=== PATIENT | male | born 1950 | race African-American/Black ===

== ENCOUNTER 2018-01-26 09:22 | Inpatient (IN) ==
[2018-01-26] MEDS ORDERED: Iohexol 350 MG/ML 100 ML Vial (for Cath Lab) IVCONTRAST ONE (09:23)
[2018-01-26] MEDS ORDERED: Iohexol 350 MG/ML 50 ML Vial (for Cath Lab) IVCONTRAST ONE (09:23)
[2018-01-26 10:45] LABS: Baso # (Auto) 0.1 th/mm3 (0.0-0.2); Baso % (Auto) 2.4 % (0.0-2.0); Eos # (Auto) 0.3 th/mm3 (0.0-0.4); Eos % (Auto) 9.1 % (0.0-4.0); Hematocrit 40.7 % (39.0-51.0); Hemoglobin 14.7 gm/dL (13.0-17.0); Lymph # (Auto) 1.8 th/mm3 (1.0-4.8); Lymph % (Auto) 49.6 % (9.0-44.0); Mean Corpuscular Hemoglobin 33.7 pg (27.0-34.0); Mean Corpuscular Volume 93.1 fL (80.0-100.0); Mean Platelet Volume 6.8 fL (7.0-11.0); Mono # (Auto) 0.4 th/mm3 (0.0-0.9); Mono % (Auto) 10.2 % (0.0-8.0); Neut % (Auto) 28.7 % (16.0-70.0); Platelet Count 292 th/mm3 (150-450); Red Blood Count 4.37 mil/mm3 (4.50-5.90); Red Cell Distribution Width 14.1 % (11.6-17.2); White Blood Count 3.6 th/mm3 (4.0-11.0)
[2018-01-26 10:48] LABS: Mean Corpuscular HGB Conc 36.2 % (32.0-36.0)
[2018-01-26 10:55] LABS: INR 1.3 Ratio; Prothrombin Time 13.2 sec (9.8-11.6)
[2018-01-26 11:02] LABS: Anion Gap 5 meq/L (5-15); Blood Urea Nitrogen 8 mg/dL (7-18); Calcium 8.4 mg/dL (8.5-10.1); Chloride 103 meq/L (98-107); Glomerular Filtration Rate Greater Than 89 mL/min (>89); Glucose,Random 158 mg/dL (74-106); Potassium 4.5 meq/L (3.5-5.1); Sodium 139 meq/L (136-145)
[2018-01-26] MEDS ORDERED: Heparin/NS PF Inj 1,000 ML ONE (11:20)
[2018-01-26] MEDS ORDERED: fentaNYL Citrate Inj 100 MCG/2 ML Ampul ONE (11:24)
--- NOTE | 2018-01-26 11:24 | P.HPUP ---
The Pre-Admit History and Physical Examination regarding the above named patient was reviewed (including, but not limited to, vital signs, heart, lungs, co-morbid conditions), and upon re-examination it is noted that: the patient's condition has not significantly changed since the last examination.
--- NOTE | 2018-01-26 12:22 | P.OP ---
Preoperative Diagnosis: Bilateral lower extremity critical limb ischemia Postoperative Diagnosis: Bilateral lower extremity critical limb ischemia Date of procedure: 01/26/18 Procedure: #1 ultrasound-guided access of left common femoral artery #2 AIF angiogram #3 right lower extremity second order angiogram #4 left lower extremity second order angiogram #5 radiological supervision of the dictation #6 conscious sedation for 30 minutes Anesthesia: MAC Surgeon: Sergo Leon MD Pathology: none sent Operation and Findings: Findings #1 infrarenal abdominal aorta, bilateral common iliac arteries, and bilateral external iliac arteries were noted to be patent with no evidence of significant stenosis. #2 the right common femoral artery, profunda femoral artery was noted to be patent. 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 #3 there task the lesion with occlusion of the left superficial femoral artery, popliteal artery with reconstitution of the infragenicular popliteal artery which is severely diseased. There is two-vessel runoff to the left foot with heavily calcified and diseased anterior tibial artery and a patent posterior tibial artery. #4 the patient will need bilateral femoral to distal bypasses starting with the right lower extremity followed by the left lower extremity. Operation in detail The patient was taken to the operating room and laid supine on the OR table. After adequate sedation the patient was prepped and draped in the standard sterile fashion. Timeout was called with all members and you are in agreement. 1% lidocaine was injected in the left groin. Using ultrasound guidance we accessed the left common femoral artery and a 5 Kiswahili sheath was placed. AIF angiogram right lower extremity second order angiogram in the left lower extremity second order endograft was performed. At this point OR catheter and sheath removed hemostasis was achieved by applying direct pressure to the left groin. The patient tolerated the procedure well and was taken to recovery unit in stable condition. Conclusion This is a pleasant patient who presented with bilateral lower extremity critical limb ischemia and rest pain worse on the right than the left. He was noted to have bilateral TASC D lesions and will need bilateral lower extremity from distal bypasses. Risk benefits and alternatives were explained to the patient and he agrees to the procedure. We will schedule the patient for the right lower extremity since his more severe followed by the left lower extremity. The patient will be admitted to the hospital and will schedule the procedure for tomorrow.
--- NOTE | 2018-01-26 12:23 | CATHPROC ---
[facility] HIS Report Study Information Study Number Admission Scheduled Start Study Start [id number] Jan 26 2018 9:22AM 01/26/2018 Jan 26 2018 11:15AM [place] Service Cardiac Pacer/ICD Admit Source Facility Department Other [facility] - Printing Shop Supervisor Physician and Clinical Staff Initial MD Leon, Sergo Program Director/Morning Show Host Karishma Vang RN Other cathlab, cathlab Recorder Paulino Calvillo RCIS(BS) Scrub Cherelle, Robin,RT(R) Procedures Performed Procedure Location (Site) Vessel Name Angiogram (manual) Abd Aorta (A3) Aorta Angiogram (manual) Fem L. Com (L7) Femoral Art Angiogram (manual) Fem R. Com (R7) Femoral Art Angiogram (manual) Iliac R. Com. (R4) Illiac Art. Angiogram (manual) Peroneal (right) Popliteal Angiogram (manual) Popliteal L (L10) Popliteal Angiogram (manual) Popliteal R (R10) Popliteal Angiogram (manual) Profunda (left) Profunda Angiogram (manual) SFA (left) Femoral Art Angiogram (manual) SFA (right) Femoral Art Angiogram (manual) Tib, Ant. (left) Popliteal Angiogram (manual) Tib, Ant. (right) Popliteal Wire insertion Fem Art (left) Femoral Art Equipment Time Police Pilot Description Size Mfg Part Number Used/Scraped [id number] 11:20 ACE [employer] WIRE, SUPERCORE 190CM Used *[id number] 11:21 ANGIO-DYNAMICS OMNI FLUSH 65CM CATHETER FR 4 Used *[id number] INTRODUCER SET, 11:17 [employer] FR 5 [id number] *[id number] Used MICROPUNCTURE STIFF WIRE, HYDROSTEER 260CM [id number] 11:45 DAIG/[employer]. [employer] 260CM Used ANGLED GLIDE *[id number] 11:17 [employer] BLANKET,WARM AIR CCL * Used *[id number] 11:17 [employer] PACK, CCL CUSTOM * Used *[id number] 11:20 NAMIC MANIFOLD, 4 PORT * Used *[id number] TUBING, 72" PRESSURE [id number] 11:17 NAMIC Used INJECTION (DOUBLE NEEDLE OPERATOR LOCKSTITCH) [id number] 11:21 NAMIC TUBING, HIGH PRESSURE 48" 48" Used *[id number] 11:28 NAMIC TUBING, HIGH PRESSURE 48" 48" Used *[id number] 11:17 NYCOMED OMNIPAQUE, 300 MG, 150ML 150ML [id number] Used 11:17 NYCOMED OMNIPAQUE, 300 MG, 50ML 50ML [id number] Used [id number] 11:42 TERUMO MEDICAL SHEATH, FR5 TERUMO (10CM) FR 5 Used *[id number] Equipment Model, Serial, Lot Number and Expiration Data Description Model Number Serial Number Lot Number Expiration Date WIRE, HYDROSTEER 260CM [id number] 08-26-2019 ANGLED GLIDE History: Allergies Allergy Reaction No Known Allergies Labs Hgb (g/dl) Hct (%) WBC (l/cumm) Platelets (thousands) 11.60-17.00 35.00-51.00 4.00-11.00 150.00-450.00 14.7 40.7 3.6 292 Glucose (mg/dl) BUN (mg/dl) Creatinine (mg/dl) BUN:Creatinine (1:x) 74.00-106.00 7.00-18.00 0.50-1.30 10.00-20.00 158 8 0.8 10 Na (meq/l) K (meq/l) 136.00-145.00 3.50-5.10 139 4.5 INR (PTT:PT) 0.90-1.10 1.3 Medication Medication Total Dose (Bolus/Oral) Medication Total Dosage/Unit 1% XYLOCAINE 20 mL FENTANYL 100 mcg VERSED 2 mg Medications (Bolus/Oral) Medication Time Given Dosage/Unit Administered By Reason VERSED 01/26/2018 11:25:20 AM 1 mg Karishma Vang 1 mg VERSED given in lab by Karishma Vang, RN in Left Antecubital via Peripheral IV. Ordered by Sergo Marti. FENTANYL 01/26/2018 11:26:23 AM 50 mcg Karishma Vang 50 mcg FENTANYL given in lab by Karishma Vang, RN in Left Antecubital via Peripheral IV. Ordered by Sergo Leon. 1% XYLOCAINE 01/26/2018 11:37:25 AM 20 mL Sergo Leon 20 mL 1% XYLOCAINE given in lab by Sergo Leon in Left Groin via Subcutaneous. Ordered by Sergo Leon. VERSED 01/26/2018 11:41:28 AM 1 mg Karishma Vang 1 mg VERSED given in lab by Karishma Vang RN in Left Antecubital via Peripheral IV. Ordered by Sergo Marti. FENTANYL 01/26/2018 11:42:35 AM 50 mcg Karishma Vang 50 mcg FENTANYL given in lab by Karishma Vang RN in Left Antecubital via Peripheral IV. Ordered by Sergo Leon. Medication (Drip) Medication Time Given Dosage/Unit Concentration/Unit Diluent (ml) Solutio n IV Solutions 01/26/2018 11:15:41 AM 0 mL (IV) 500 NaCl .9 Patient arrived on IV Solutions given by robin kelly in Left Antecubital via Peripheral IV. Pump /Drip Flow = 20 ml/hr using NaCl .9. Ordered by Sergo Leon. Initial Case Assessment Cardiovascular HR Rhythm NIBP Chest Pain 58 sbrady 162/95 0 Edema Present Skin color Skin Mild Normal Warm Dry Circulatory - Right Pulses Dorsalis Pedis Femoral 1 1 Scale (0,1,2,3,4,d) Circulatory - Left Pulses Dorsalis Pedis Femoral 1 1 Scale (0,1,2,3,4,d) Neurological State Oriented to time-place- Alert Moves all extremities person Respiration - General Respiration Rate SpO2 (%) (B/min) 15 100 Chronological Log Time Study Chronological Log 11:15:31 Patient arrived via Bed. 11:15:31 Patient Name, D.O.B, / Armband Verified By R.N. 11:15:33 Consent signed by the physician and the patient and verified by the Printing Shop Supervisor staff. 11:15:33 Pre-op and post- op instructions given; patient acknowledges understanding of instructions. 11:15:35 Presedation assessment performed by Printing Shop Supervisor RN. 11:15:36 Immediate Presedation assesment performed by physician. 11:15:38 Patient has been NPO for More than 6Hrs. 11:15:38 Skin Breakdown- none per patient 11:15:39 Patient Warmer Placed on the Table. 11:15:40 Raymond Prominences Protected 11:15:40 A # 20 IV was noted in the Antecubital (left). Grade = 0 Patient arrived on IV Solutions given by robin kelly in Left Antecubital via Peripheral IV . Pump/Drip Flow = 20 11:15:41 ml/hr using NaCl .9. Ordered by Sergo Leon. 11:15:41 History and physical on the chart or being dictated. 11:17:21 MD arrived. Vitals capture started with the following parameters, Patient=Adult, Interval=5 min, Initial Pr lujyda=005 mmHg, 11:20:17 Deflation Rate=5 mmHg, Cuff placed on Left Arm 11:20:18 Reference ECG taken Assessment: Initial Case, HR=58 BPM, Rhythm=sbrady, DONQ=670/95 mmhg, Chest Pain=0, Edema=Mild, Color=Normal, Skin = Warm, Dry Right Pulses: Dillan Ped=1, Femoral=1 11:20:19 Left Pulses: Dillan Ped=1, Femoral=1 Neurological: State=Alert, Ox3, URENA Respiration: Resp=15 B/min, AgH8=111 % 11:20:53 HR=56 bpm, QYFC=287/95 mmhg, YmB5=325.0 %, Resp=10 B/min, Pain=0, Mahendra=10, Graf=2 11:25:20 1 mg VERSED given in lab by Karishma Vang, KELLEY in Left Antecubital via Peripheral IV. Orde red by Sergo Leon. 11:25:54 HR=62 bpm, JUBQ=222/93 mmhg, WyH5=771.0 %, Resp=12 B/min, Pain=0, Mahendra=10, Graf=2 50 mcg FENTANYL given in lab by Karishma Vang, KELLEY in Left Antecubital via Peripheral IV. Orde red by Carolyn, 11:26:23 Sergo. 11:29:11 Bilateral groins prepped with 2% chlorhexidine, and draped after a 3 minute waiting time. 11:30:32 Contrast Scanned 11:30:33 Immediate Presedation assesment performed by physician. 11:30:55 HR=62 bpm, FKVV=456/92 mmhg, TdZ6=101.0 %, Resp=14 B/min, Pain=0, Mahendra=10, Graf=2 11:33:52 Pressure channel 2 zeroed. 11:35:54 HR=59 bpm, WYTN=770/88 mmhg, KsI8=691.0 %, Resp=10 B/min, Pain=0, Mahendra=10, Graf=2 Time Out. Correct patient, correct procedure, correct physician, labs, allergies, and equipment verified with labor relations supervisor 11:37:09 team present. Fire risk assesment completed (see hard stop sheet for coding). Time Out Conc urred by MD and individual staff in procedure. 11:37:25 Case Start 11:37:25 20 mL 1% XYLOCAINE given in lab by Sergo Leon in Left Groin via Subcutaneous. Ordered by Sergo Leon. 11:40:34 Access site was Left Femoral Artery. A INTRODUCER SET, MICROPUNCTURE STIFF FR 5 was advanced into the Fem Art (left) using the Omar servin 11:40:37 technique. 11:40:49 HR=65 bpm, ZFMO=722/91 mmhg, SpO2=99.0 %, Resp=10 B/min, Pain=0, Mahendra=10, Graf=2 A SHEATH, FR5 TERUMO (10CM) FR 5 was exchanged in the Fem Art (left). This was necessary in ord er to 11:41:19 accomodate a larger catheter. 11:41:28 1 mg VERSED given in lab by Karishma Vang, KELLEY in Left Antecubital via Peripheral IV. Orde red by Sergo Leon. 50 mcg FENTANYL given in lab by Karishma Vang, KELLEY in Left Antecubital via Peripheral IV. Orde red by Carolyn, 11:42:35 Sergo. A OMNI FLUSH 65CM CATHETER FR 4 was advanced over a wire. OMNIPAQUE, 300 MG, 150ML 150ML was us ed for 11:42:47 injections. 11:44:22 Abd Aorta (A3) angiogram, manually injected. 11:45:07 A WIRE, HYDROSTEER 260CM ANGLED GLIDE 260CM was inserted via Fem Art (left). 11:46:25 HR=58 bpm, GQJC=222/90 mmhg, DmF5=475.0 %, Resp=9 B/min, Pain=0, Mahendra=10, Graf=2 11:48:14 Iliac R. Com. (R4) angiogram, manually injected. 11:48:21 Fem R. Com (R7) angiogram, manually injected. 11:48:25 SFA (right) angiogram, manually injected. 11:48:29 Popliteal R (R10) angiogram, manually injected. 11:50:53 HR=69 bpm, VIMW=339/88 mmhg, SpO2=99.0 %, Resp=10 B/min, Pain=0, Mahendra=10, Graf=2 11:51:38 Tib, Ant. (right) angiogram, manually injected. 11:51:42 Peroneal (right) angiogram, manually injected. 11:55:09 A WIRE, SUPERCORE 190CM was inserted via Fem Art (left). 11:55:16 Catheter was removed w/o difficulty 11:55:52 HR=65 bpm, IZHF=781/90 mmhg, LjZ3=304.0 %, Resp=10 B/min, Pain=0, Mahendra=10, Graf=2 11:56:57 Fem L. Com (L7) angiogram, manually injected. 11:57:56 Profunda (left) angiogram, manually injected. 11:59:15 SFA (left) angiogram, manually injected. 11:59:28 Popliteal L (L10) angiogram, manually injected. 12:00:55 HR=63 bpm, KZGH=714/87 mmhg, EeF5=578.0 %, Resp=14 B/min, Pain=0, Mahendra=10, Graf=2 12:01:40 Tib, Ant. (left) angiogram, manually injected. 12:05:54 HR=64 bpm, JUIU=186/85 mmhg, OtF2=846.0 %, Resp=14 B/min, Pain=0, Mahendra=10, Graf=2 12:07:09 Case End (Physician broke scrub) 12:08:30 Sheath removed; pressure applied to access site. 12:10:53 HR=62 bpm, VYLS=082/92 mmhg, SpO2=98.0 %, Resp=9 B/min, Pain=0, Mahendra=10, Graf=2 12:15:54 HR=67 bpm, ALHE=937/99 mmhg, SpO2=85.0 %, Resp=12 B/min, Pain=0, Mahendra=10, Grfa=2 12:20:59 HR=64 bpm, MHFP=396/108 mmhg, SpO2=70.0 %, Resp=11 B/min, Pain=0, Mahendra=10, Graf=2 12:21:27 Sterile dressing applied to site 12:21:28 No case complications noted. 12:21:29 Cine recording checked. 12:21:30 Bedside Report will be given. End Study - Contrast Media Used In Study Contrast Total Opened (mL) Total Used (mL) Total Wasted (mL) Omnipaque 135 135 0 End Study - Maximum Contrast Load Max Contrast Load (mL) 349.4 End Study - Radiation Exposure Fluoro Time (minutes) 1.6 End Study - Sheaths Sheaths Pulled By Sheath Hold Time (min) Robin Villarreal 14 End Study - Patient Disposition Complications Transferred To Interventional Outcome No Printing Shop Supervisor Holding No attempt made
[2018-01-26] MEDS: Sod Chloride 0.9% Inj 1,000 ML IV.SIG SCH (13:31)
[2018-01-26] MEDS: Morphine Sulfate Inj 2 MG/ML Vial IV.PUSH PRN (13:45)
[2018-01-26] MEDS: KCL 20 mEq/D5W/NaCl 0.45% Inj 1,000 ML IV.CONT SCH (14:59)
[2018-01-26] MEDS: Heparin - SQ 10,000 UNITS/ML Vial SQ SCH ×2 (15:19→21:56)
--- NOTE | 2018-01-26 19:47 | US ---
EXAM DATE: 01/26/2018 7:41 PM EDT AGE/SEX: 67 years / Male INDICATIONS: Conduit for bypass. CLINICAL DATA: This is the patient's initial encounter. Patient reports that signs and symptoms have been present for 4 - 6 months and indicates a pain score of 9/10. MEDICAL/SURGICAL HISTORY: . Chronic pain. Claudication. Diabetes. Peripheral arterial disease. Diabetes. . Femoral-tibial bypass graft occlusion, right. COMPARISON: [facility] [place] LEG BILATERAL VENOUS DOPPLER, 08/10/2016. . TECHNIQUE: Venous ultrasound of both lower extremities was performed from the inguinal ligament to t he proximal calf. Real-time, color Doppler and spectral tracing, compression and augmentation techni ques were used. FINDINGS: Right Leg: Normal compression of the deep venous system from the inguinal region to the proximal curly f. No echogenic clot is seen. Normal response of the venous system to augmentation and respiration. Left Leg: Normal compression of the deep venous system from the inguinal region to the proximal calf . No echogenic clot is seen. Normal response of the venous system to augmentation and respiration. Other: None. CONCLUSION: 1. The study is negative for bilateral lower extremity deep venous thrombosis. Electronically signed by: Facundo Buchanan MD 01/26/2018 7:46 PM EDT
--- NOTE | 2018-01-26 20:06 | US ---
EXAM DATE: 01/26/2018 8:03 PM EDT AGE/SEX: 67 years / Male INDICATIONS: Conduit for bypass. CLINICAL DATA: This is the patient's initial encounter. Patient reports that signs and symptoms have been present for 4 - 6 months and indicates a pain score of 8/10. MEDICAL/SURGICAL HISTORY: . Chronic pain. Claudication. Diabetes. Peripheral arterial disease. Diabetes. . Femoral-tibial bypass graft occlusion, right. COMPARISON: [place], US VENOUS DOPPLER LEG BI, 01/26/2018. . MEASUREMENTS: RIGHT THIGH: Proximal:__5 mm Mid:__ 2 mm Distal:__Non-visualized LEFT THIGH: Proximal:__2 mm Mid:__Non-visualized Distal:__Non-visualized RIGHT CALF: Proximal:__2 mm Mid:__2 mm Distal:__2 mm LEFT CALF: Proximal:__Non-visualized Mid:__Non-visualized Distal:__Non-visualized FINDINGS: The venous system of the lower extremities are patent by color Doppler imaging. Measurements of the leg veins (in mm) are listed above. CONCLUSION: 1. Limited exam. Vessel diameters otherwise within normal limits. Electronically signed by: Facundo Buchanan MD 01/26/2018 8:05 PM EDT
[2018-01-27] MEDS ORDERED: Chlorhexidine Gluconate 2% 1 Pack (2 Cloths) TOPICAL ONE (00:47)
[2018-01-27] MEDS ORDERED: Metoprolol Tartrate 25 MG Tablet PO ONE (00:47)
[2018-01-27] MEDS ORDERED: Sodium Chlor 0.9% Inj 500 ML IV.SIG SCH (01:00)
[2018-01-27] MEDS: KCL 20 mEq/D5W/NaCl 0.45% Inj 1,000 ML IV.CONT SCH ×3 (01:25→22:23)
[2018-01-27] MEDS: Heparin - SQ 10,000 UNITS/ML Vial SQ SCH ×2 (06:02→14:25)
[2018-01-27 06:12] LABS: Hematocrit 43.3 % (39.0-51.0); Hemoglobin 14.5 gm/dL (13.0-17.0); Mean Corpuscular HGB Conc 33.4 % (32.0-36.0); Mean Corpuscular Hemoglobin 31.6 pg (27.0-34.0); Mean Corpuscular Volume 94.5 fL (80.0-100.0); Mean Platelet Volume 7.1 fL (7.0-11.0); Platelet Count 278 th/mm3 (150-450); Red Blood Count 4.58 mil/mm3 (4.50-5.90); Red Cell Distribution Width 13.7 % (11.6-17.2); White Blood Count 3.9 th/mm3 (4.0-11.0)
[2018-01-27] MEDS ORDERED: Heparin/NS PF Inj 500 ML ONE (06:32)
[2018-01-27] MEDS ORDERED: Thrombin Topical 20,000 UNIT Spray Kit TOPICAL ONE (06:32)
[2018-01-27] MEDS ORDERED: Protamine Sulfate Inj 50 MG/5 ML Vial ONE (06:32)
[2018-01-27] MEDS ORDERED: Heparin 10,000 UNITS/10 ML Vial (for IV use) ONE (06:32)
[2018-01-27] MEDS ORDERED: ceFAZolin 2 GM Premix Inj 2 GM/50 ML PIGGYBACK IV.SIG ONE (06:32)
[2018-01-27 06:33] LABS: Anion Gap 7 meq/L (5-15); Blood Urea Nitrogen 12 mg/dL (7-18); Calcium 8.3 mg/dL (8.5-10.1); Chloride 105 meq/L (98-107); Glomerular Filtration Rate Greater Than 89 mL/min (>89); Glucose,Random 163 mg/dL (74-106); Potassium 4.3 meq/L (3.5-5.1); Sodium 139 meq/L (136-145)
[2018-01-27] MEDS ORDERED: Gelatin Size 100 Topical Foam ONE (06:39)
[2018-01-27] MEDS ORDERED: Lidocaine PF 1% Inj 5 ML Syringe OTHER ONE (07:45)
[2018-01-27] MEDS ORDERED: Labetalol HCl Inj 100 MG/20 ML Vial IV.CONT ONE (07:45)
[2018-01-27] MEDS ORDERED: Phenylephrine/NS 1000 MCG/10ML Syringe IV.PUSH ONE (07:45)
[2018-01-27] MEDS ORDERED: Neostigmine Inj 5 MG/5 ML Syringe IV.PUSH ONE (07:45)
[2018-01-27] MEDS ORDERED: Glycopyrrolate Inj 1 MG/5 ML Syringe IV.PUSH ONE (07:45)
[2018-01-27] MEDS ORDERED: Normosol-R pH 7.4 Inj 2,000 ML IV.CONT ONE (07:45)
[2018-01-27] MEDS ORDERED: Ketamine Inj 50 MG/5 ML Syringe IV.PUSH ONE (09:03)
[2018-01-27] MEDS ORDERED: Bupivacaine 0.5% Inj 50 ML MDV Vial ONE (10:53)
--- NOTE | 2018-01-27 11:27 | P.OP ---
Preoperative Diagnosis: Right lower extremity critical limb ischemia Postoperative Diagnosis: Right lower extremity critical limb ischemia Date of procedure: 01/27/18 Procedure: Redo right femoral to popliteal artery bypass using 6 mm ringed PTFE graft that is anatomically tunneled. Surgeon: Sergo Leon MD Estimated blood loss (mL): 100 Operation and Findings: Findings Successful redo right femoral to posterior tibial artery bypass using the ring PTFE graft that is anatomically tunneled. There was triphasic posterior tibial signal at the end of the procedure. Description of the procedure The patient was taken to the operating room and laid supine on the OR table. After general trach anesthesia the patient was prepped and draped in the standard sterile fashion. Timeout was called with all members and they are in agreement. A right groin incision was made dissection was taken down through the subcutaneous tissues electrocautery. The common femoral artery common iliac artery were all dissected and encircled with Silastic loop. The old bypass graft was also identified and dissected. Now attention was turned to the right posterior tibial artery dissection. An incision was made in the right medial calf and dissection was taken down through the subcutaneous tissues electrocautery. The soleus was mobilized medially. The posterior tibial artery was identified dissected and encircled with 2 Silastic loops. The patient was heparinized. The graft was then brought into the field proximal distal control was obtained and right femoral vessels and the old graft was removed. An arteriotomy was then extended into the common femoral artery. The graft was brought into the field catheter. In length and the proximal anastomosis fashioned using a 5-0 Prolene suture in a running fashion. The graft was then tunneled anatomically by created a counterincision in the medial thigh. Proximal distal control was obtained in the posterior tibial artery and arteriotomy was created and the graft was cut to appropriate length and the distal anastomosis fashion using 6-0 Prolene suture in a running fashion. Hemostasis achieved and all wounds was closed in multiple layers using Vicryl suture followed by Monocryl suture. The calf incision was closed using nylon suture. Prevena dressing was placed on the right groin wound and sterile dressing was placed on the rest of the wound. The patient tolerated the procedure well and was taken to recovery in stable condition.
[2018-01-27] MEDS ORDERED: *morphine SULFATE 10 MG/ML PERIprocedure ONLY ONE ×2 (11:50→12:00)
[2018-01-27] MEDS ORDERED: Morphine Inj 4 MG/ML Vial ONE (11:52)
[2018-01-27] MEDS ORDERED: fentaNYL Citrate Inj 100 MCG/2 ML Ampul ONE ×2 (11:52)
[2018-01-27] MEDS ORDERED: Post-op Orders (for Pharmacy) OTHER STA (11:58)
[2018-01-27] MEDS ORDERED: *Meperidine Inj 25 MG/ML Vial PERIprocedural Use ONLY ONE (12:00)
[2018-01-27] MEDS: ceFAZolin 2 GM Premix Inj 2 GM/50 ML PIGGYBACK IV.SIG SCH (15:55)
[2018-01-27] MEDS: amLODIPine 10 MG Tablet PO SCH (17:08)
[2018-01-27] MEDS: Sod Chloride 0.9% Inj 1,000 ML IV.SIG SCH (17:10)
--- NOTE | 2018-01-27 18:52 | ECG ---
Date Performed: 01/27/2018 Time Performed: 07:43:03 PTAGE: 67 years EKG: SINUS BRADYCARDIA BORDERLINE ECG NO PREVIOUS TRACING DOCTOR: Forest See Interpretating Date/Time 01/27/2018 18:51:09
[2018-01-27 21:25] LABS: Activated Partial Thrombo Time 32.2 sec (23.4-31.7); INR 1.1 Ratio; Prothrombin Time 11.3 sec (9.8-11.6)
[2018-01-28] MEDS: ceFAZolin 2 GM Premix Inj 2 GM/50 ML PIGGYBACK IV.SIG SCH ×2 (01:54→09:10)
[2018-01-28 05:05] LABS: Eos # (Auto) 0.2 th/mm3 (0.0-0.4); Eos % (Auto) 4.3 % (0.0-4.0); Hematocrit 37.5 % (39.0-51.0); Hemoglobin 12.6 gm/dL (13.0-17.0); Lymph # (Auto) 1.7 th/mm3 (1.0-4.8); Lymph % (Auto) 35.9 % (9.0-44.0); Mean Corpuscular HGB Conc 33.6 % (32.0-36.0); Mean Corpuscular Hemoglobin 31.6 pg (27.0-34.0); Mean Platelet Volume 6.9 fL (7.0-11.0); Mono # (Auto) 0.4 th/mm3 (0.0-0.9); Mono % (Auto) 9.1 % (0.0-8.0); Neut # (Auto) 2.3 th/mm3 (1.8-7.7); Neut % (Auto) 49.7 % (16.0-70.0); Platelet Count 248 th/mm3 (150-450); Red Blood Count 3.99 mil/mm3 (4.50-5.90); Red Cell Distribution Width 13.6 % (11.6-17.2); White Blood Count 4.6 th/mm3 (4.0-11.0)
[2018-01-28 05:43] LABS: Anion Gap 6 meq/L (5-15); Blood Urea Nitrogen 5 mg/dL (7-18); Calcium 7.5 mg/dL (8.5-10.1); Carbon Dioxide 28.1 meq/L (21.0-32.0); Chloride 105 meq/L (98-107); Glomerular Filtration Rate Greater Than 89 mL/min (>89); Glucose,Random 186 mg/dL (74-106); Potassium 4.1 meq/L (3.5-5.1); Sodium 139 meq/L (136-145)
[2018-01-28] MEDS ORDERED: Dextrose 50% in Water 50 ML Vial IV.PUSH PRN ×2 (07:09→19:42)
[2018-01-28] MEDS: KCL 20 mEq/D5W/NaCl 0.45% Inj 1,000 ML IV.CONT SCH (09:09)
[2018-01-28] MEDS: amLODIPine 10 MG Tablet PO SCH (09:11)
[2018-01-28] MEDS: Insulin NovoLIN Regular Correctional Sugar Inj SQ SCH ×3 (09:28→16:51)
[2018-01-28] MEDS: Morphine Sulfate Inj 2 MG/ML Vial IV.PUSH PRN ×3 (09:39→20:29)
[2018-01-28] MEDS: Heparin Drip 25,000 UNIT/250 ML BAG IV.CONT PRN (09:44)
--- NOTE | 2018-01-28 10:01 | P.PNVS ---
Subjective Post Op Day #: 1 Subjective/Hospital Course: Patient is doing well, his pain is well controlled. Objective Vital Signs / I&O: Vital Signs 01/27/18 11:34 01/27/18 11:45 01/27/18 12:00 Temperature 97.2 F L Pulse Rate 80 77 66 Respiratory Rate 10 L 16 17 Blood Pressure 182/101 H 165/102 H 161/92 H Pulse Oximetry 100 100 100 01/27/18 12:15 01/27/18 12:30 01/27/18 13:00 Temperature 97.4 F L Pulse Rate 65 62 73 Respiratory Rate 22 20 15 Blood Pressure 153/94 H 146/91 H 167/96 H Pulse Oximetry 93 L 93 L 99 01/27/18 13:57 01/27/18 14:00 01/27/18 16:01 Temperature 97.7 F Pulse Rate 63 71 Respiratory Rate 22 20 19 Blood Pressure 152/86 H 167/92 H Pulse Oximetry 99 95 01/27/18 16:02 01/27/18 19:00 01/27/18 20:00 Temperature 97.6 F Pulse Rate 60 70 Respiratory Rate 16 Blood Pressure 156/84 H Pulse Oximetry 95 99 01/27/18 20:36 01/27/18 21:00 01/27/18 22:00 Temperature Pulse Rate 62 60 Respiratory Rate 20 Blood Pressure Pulse Oximetry 01/27/18 22:34 01/27/18 23:00 01/28/18 00:00 Temperature 98.5 F Pulse Rate 60 66 Respiratory Rate 16 16 Blood Pressure 126/74 Pulse Oximetry 98 01/28/18 01:00 01/28/18 02:00 01/28/18 03:25 Temperature Pulse Rate 60 58 L 60 Respiratory Rate Blood Pressure Pulse Oximetry 01/28/18 04:00 01/28/18 04:25 01/28/18 05:25 Temperature 98.5 F Pulse Rate 62 76 67 Respiratory Rate 16 Blood Pressure 136/82 Pulse Oximetry 98 01/28/18 06:00 Temperature Pulse Rate 58 L Respiratory Rate Blood Pressure Pulse Oximetry Intake & Output 01/27/18 01/28/18 01/28/18 18:59 06:59 18:59 Intake Total 4510 / 4510 1290 / 1290 1000 / 1000 Output Total 980 / 980 1800 / 1800 Balance 3530 / 3530 -510 / -510 1000 / 1000 Weight 60.4 kg Intake: IV 1100 / 1100 1050 / 1050 1000 / 1000 Heparin/NS PF Inj 500 ML @ 0 0 / 0 mls/hr .ROUTE .STK-MED ONE Rx#: [id number] D5W/1/2NS + KCL 20 mEq Inj 1, 1000 / 1000 1000 / 1000 1000 / 1000 000 ML @ 100 mls/hr IV.CONT . Q10H [facility] Rx#:[id number] NS Inj 1,000 ML @ 30 mls/hr IV. 0 / 0 SIG .Q24H [facility] Rx#:[id number] Ancef 2 GM Premix Inj 2 gm In 100 / 100 50 / 50 50 ml @ 100 mls/hr IV.SIG Q8H [facility] Rx#:[id number] Oral 460 / 460 240 / 240 Anesthesia Amount 2950 / 2950 Output: Estimated Blood Loss 250 / 250 Urine Amount (Catheter) 730 / 730 1800 / 1800 Indwelling Temp Sensing 630 / 630 1800 / 1800 Catheter Indwelling Urethral Catheter 100 / 100 Other: Mode Setting Right Groin Continuous Date of Last Bowel Movement 01/27/18 Exam: Multiphasic right posterior tibial signal. Wounds are clean dry intact. Laboratory Results - last 24 hr 01/27/18 01/27/18 01/27/18 12:28 20:37 23:32 WBC RBC Hgb Hct MCV MCH MCHC RDW Plt Count MPV Neut % (Auto) Lymph % (Auto) [place] % (Auto) Eos % (Auto) Baso % (Auto) Neut # (Auto) Lymph # (Auto) [place] # (Auto) Eos # (Auto) Baso # (Auto) WBC Differential Differential Comment PT 11.3 INR 1.1 APTT 32.2 H Sodium Potassium Chloride Carbon Dioxide Anion Gap BUN Creatinine Estimated GFR POC Glucose 153 H 189 H Random Glucose Calcium 01/28/18 01/28/18 01/28/18 04:16 04:16 09:25 WBC 4.6 RBC 3.99 L Hgb 12.6 L Hct 37.5 L MCV 94.0 MCH 31.6 MCHC 33.6 RDW 13.6 Plt Count 248 MPV 6.9 L Neut % (Auto) 49.7 Lymph % (Auto) 35.9 [place] % (Auto) 9.1 H Eos % (Auto) 4.3 H Baso % (Auto) 1.0 Neut # (Auto) 2.3 Lymph # (Auto) 1.7 [place] # (Auto) 0.4 Eos # (Auto) 0.2 Baso # (Auto) 0.0 WBC Differential . Differential Comment Auto diff final PT INR APTT Sodium 139 Potassium 4.1 Chloride 105 Carbon Dioxide 28.1 Anion Gap 6 BUN 5 L Creatinine 0.76 Estimated GFR Greater than 89 POC Glucose 261 H Random Glucose 186 H Calcium 7.5 L D Assessment and Plan - Plan Status post redo femoral posterior tibial bypass We will start heparin drip Ambulate as tolerated Regular diet DC Brown DC IV fluids
[2018-01-28] MEDS ORDERED: ceFAZolin 2 GM Premix Inj 2 GM/50 ML PIGGYBACK IV.SIG SCH (10:36)
[2018-01-28] MEDS: Sod Chloride 0.9% Inj 1,000 ML IV.SIG SCH (10:51)
[2018-01-28] MEDS: Insulin NovoLOG Aspart Correctional Sugar Inj SQ SCH (22:48)
[2018-01-29] MEDS: Morphine Sulfate Inj 2 MG/ML Vial IV.PUSH PRN ×4 (04:34→20:18)
[2018-01-29 06:47] LABS: Baso % (Auto) 0.5 % (0.0-2.0); Eos % (Auto) 0.4 % (0.0-4.0); Hematocrit 42.8 % (39.0-51.0); Hemoglobin 14.4 gm/dL (13.0-17.0); Lymph % (Auto) 11.8 % (9.0-44.0); Mean Corpuscular HGB Conc 33.5 % (32.0-36.0); Mean Corpuscular Hemoglobin 31.8 pg (27.0-34.0); Mean Corpuscular Volume 94.8 fL (80.0-100.0); Mean Platelet Volume 7.2 fL (7.0-11.0); Mono # (Auto) 0.5 th/mm3 (0.0-0.9); Mono % (Auto) 6.1 % (0.0-8.0); Neut % (Auto) 81.2 % (16.0-70.0); Platelet Count 269 th/mm3 (150-450); Red Blood Count 4.52 mil/mm3 (4.50-5.90); Red Cell Distribution Width 13.4 % (11.6-17.2); White Blood Count 8.7 th/mm3 (4.0-11.0)
[2018-01-29 07:18] LABS: Anion Gap 8 meq/L (5-15); Blood Urea Nitrogen 8 mg/dL (7-18); Calcium 8.2 mg/dL (8.5-10.1); Carbon Dioxide 26.8 meq/L (21.0-32.0); Chloride 100 meq/L (98-107); Glomerular Filtration Rate Greater Than 89 mL/min (>89); Glucose,Random 181 mg/dL (74-106); Potassium 4.2 meq/L (3.5-5.1); Sodium 135 meq/L (136-145)
[2018-01-29] MEDS: Insulin NovoLOG Aspart Correctional Sugar Inj SQ SCH ×4 (08:46→21:45)
[2018-01-29] MEDS: amLODIPine 10 MG Tablet PO SCH (08:46)
--- NOTE | 2018-01-29 10:22 | P.PNVS ---
Subjective Subjective/Hospital Course: Doing well tolerating diet, having bowel movements, pain controlled Objective Vital Signs / I&O: Vital Signs 01/28/18 12:00 01/28/18 13:00 01/28/18 14:00 Temperature 98.8 F Pulse Rate 62 69 70 Respiratory Rate 18 Blood Pressure 157/87 H Pulse Oximetry 99 01/28/18 16:00 01/28/18 17:00 01/28/18 18:00 Temperature 98.9 F Pulse Rate 74 74 78 Respiratory Rate 18 Blood Pressure 142/84 H Pulse Oximetry 99 01/28/18 19:00 01/28/18 20:00 01/28/18 21:00 Temperature 98.7 F Pulse Rate 75 70 70 Respiratory Rate 18 Blood Pressure 153/94 H Pulse Oximetry 99 01/28/18 22:00 01/28/18 22:49 01/28/18 23:00 Temperature Pulse Rate 74 75 Respiratory Rate 16 Blood Pressure Pulse Oximetry 01/28/18 23:55 01/29/18 00:00 01/29/18 01:00 EDT Temperature 98.6 F Pulse Rate 84 78 Respiratory Rate 18 16 Blood Pressure 169/88 H Pulse Oximetry 97 01/29/18 01:00 EST 01/29/18 02:00 01/29/18 03:00 Temperature 99.8 F H Pulse Rate 83 84 87 Respiratory Rate 16 Blood Pressure 159/86 H Pulse Oximetry 98 01/29/18 04:00 01/29/18 05:00 01/29/18 06:00 Temperature Pulse Rate 91 H 93 H 93 H Respiratory Rate Blood Pressure Pulse Oximetry 01/29/18 06:23 01/29/18 07:00 01/29/18 08:47 Temperature 98.5 F Pulse Rate 89 Respiratory Rate 20 16 16 Blood Pressure 148/88 H Pulse Oximetry 99 Intake & Output 01/28/18 01/29/18 01/29/18 19:59 06:59 18:59 Intake Total Output Total Balance Weight Intake: IV D5W/1/2NS + KCL 20 mEq Inj 1, 000 ML @ 100 mls/hr IV.CONT . Q10H SAMUEL Rx#:[id number] Ancef 2 GM Premix Inj 2 gm In 50 ml @ 100 mls/hr IV.SIG Q8H SAMUEL Rx#:[id number] Oral Output: Urine Urine Amount (Catheter) Indwelling Temp Sensing Catheter Other: Date of Last Bowel Movement 01/27/18 Physical Exam: Right lower extremity wounds are clean dry intact. Multiphasic posterior tibial , dorsalis pedis signal. Laboratory Results - last 24 hr 01/28/18 01/28/18 01/28/18 12:54 16:45 16:47 WBC RBC Hgb Hct MCV MCH MCHC RDW Plt Count MPV Neut % (Auto) Lymph % (Auto) [place] % (Auto) Eos % (Auto) Baso % (Auto) Neut # (Auto) Lymph # (Auto) [place] # (Auto) Eos # (Auto) Baso # (Auto) WBC Differential Differential Comment APTT 73.1 H D Sodium Potassium Chloride Carbon Dioxide Anion Gap BUN Creatinine Estimated GFR POC Glucose 83 156 H Random Glucose Calcium 01/28/18 01/28/18 01/29/18 21:01 21:35 05:52 WBC 8.7 RBC 4.52 Hgb 14.4 Hct 42.8 MCV 94.8 MCH 31.8 MCHC 33.5 RDW 13.4 Plt Count 269 MPV 7.2 Neut % (Auto) 81.2 H Lymph % (Auto) 11.8 [place] % (Auto) 6.1 Eos % (Auto) 0.4 Baso % (Auto) 0.5 Neut # (Auto) 7.0 Lymph # (Auto) 1.0 [place] # (Auto) 0.5 Eos # (Auto) 0.0 Baso # (Auto) 0.0 WBC Differential . Differential Comment Auto diff final APTT 85.7 H Sodium Potassium Chloride Carbon Dioxide Anion Gap BUN Creatinine Estimated GFR POC Glucose 156 H Random Glucose Calcium 01/29/18 01/29/18 01/29/18 05:52 05:52 08:30 WBC RBC Hgb Hct MCV MCH MCHC RDW Plt Count MPV Neut % (Auto) Lymph % (Auto) [place] % (Auto) Eos % (Auto) Baso % (Auto) Neut # (Auto) Lymph # (Auto) [place] # (Auto) Eos # (Auto) Baso # (Auto) WBC Differential Differential Comment APTT 45.5 H D Sodium 135 L Potassium 4.2 Chloride 100 Carbon Dioxide 26.8 Anion Gap 8 BUN 8 Creatinine 0.79 Estimated GFR Greater than 89 POC Glucose 236 H Random Glucose 181 H Calcium 8.2 L Assessment and Plan - Plan Status post redo femoral posterior tibial bypass Out of bed today with PT. Will start Coumadin.
[2018-01-29] MEDS: Heparin Drip 25,000 UNIT/250 ML BAG IV.CONT PRN (10:36)
[2018-01-29] MEDS: Sod Chloride 0.9% Inj 1,000 ML IV.SIG SCH (11:30)
[2018-01-30 04:23] LABS: Baso # (Auto) 0.1 th/mm3 (0.0-0.2); Baso % (Auto) 0.9 % (0.0-2.0); Eos # (Auto) 0.2 th/mm3 (0.0-0.4); Eos % (Auto) 1.7 % (0.0-4.0); Hematocrit 37.1 % (39.0-51.0); Hemoglobin 12.8 gm/dL (13.0-17.0); Lymph # (Auto) 2.4 th/mm3 (1.0-4.8); Lymph % (Auto) 25.3 % (9.0-44.0); Mean Corpuscular HGB Conc 34.4 % (32.0-36.0); Mean Corpuscular Hemoglobin 31.7 pg (27.0-34.0); Mean Platelet Volume 7.7 fL (7.0-11.0); Mono % (Auto) 10.9 % (0.0-8.0); Neut # (Auto) 5.8 th/mm3 (1.8-7.7); Neut % (Auto) 61.2 % (16.0-70.0); Platelet Count 245 th/mm3 (150-450); Red Blood Count 4.03 mil/mm3 (4.50-5.90); Red Cell Distribution Width 13.3 % (11.6-17.2); White Blood Count 9.4 th/mm3 (4.0-11.0)
[2018-01-30 04:45] LABS: Anion Gap 8 meq/L (5-15); Blood Urea Nitrogen 16 mg/dL (7-18); Calcium 7.9 mg/dL (8.5-10.1); Carbon Dioxide 27.4 meq/L (21.0-32.0); Chloride 100 meq/L (98-107); Glomerular Filtration Rate Greater Than 89 mL/min (>89); Glucose,Random 141 mg/dL (74-106); Potassium 4.1 meq/L (3.5-5.1); Sodium 135 meq/L (136-145)
[2018-01-30] MEDS: Morphine Sulfate Inj 2 MG/ML Vial IV.PUSH PRN ×2 (08:24→12:52)
[2018-01-30] MEDS: Insulin NovoLOG Aspart Correctional Sugar Inj SQ SCH ×4 (09:30→22:16)
[2018-01-30] MEDS: amLODIPine 10 MG Tablet PO SCH (09:31)
--- NOTE | 2018-01-30 11:09 | P.PNVS ---
Subjective Post Op Day #: 3 Procedure: Redo right femoral to popliteal artery bypass Subjective/Hospital Course: 67/M S/P Redo right femoral to popliteal artery bypass Pt sitting in chair doing well Pain controlled Tolerating diet Objective Vital Signs / I&O: Vital Signs 01/29/18 12:00 01/29/18 13:00 01/29/18 14:00 Temperature Pulse Rate 92 H 90 84 Respiratory Rate Blood Pressure Pulse Oximetry 01/29/18 15:00 01/29/18 16:00 01/29/18 17:00 Temperature 98.7 F Pulse Rate 83 82 92 H Respiratory Rate 16 Blood Pressure 152/91 H Pulse Oximetry 98 01/29/18 18:00 01/29/18 19:00 01/29/18 20:00 Temperature 98.7 F Pulse Rate 84 81 82 Respiratory Rate 16 Blood Pressure 157/87 H Pulse Oximetry 99 01/29/18 21:00 01/29/18 22:00 01/29/18 23:00 Temperature 98.8 F Pulse Rate 86 86 85 Respiratory Rate 16 Blood Pressure 137/73 Pulse Oximetry 98 01/30/18 00:00 01/30/18 01:00 01/30/18 02:00 Temperature Pulse Rate 82 86 80 Respiratory Rate Blood Pressure Pulse Oximetry 01/30/18 03:00 01/30/18 03:02 01/30/18 04:00 Temperature 99.3 F Pulse Rate 85 86 Respiratory Rate 16 16 Blood Pressure 133/78 Pulse Oximetry 99 01/30/18 05:00 01/30/18 06:00 01/30/18 07:00 Temperature 99.0 F Pulse Rate 84 90 86 Respiratory Rate 18 Blood Pressure 157/96 H Pulse Oximetry 98 Intake & Output 01/29/18 01/30/18 01/30/18 18:59 06:59 18:59 Intake Total 1190 / 1190 240 / 240 Output Total 450 / 450 Balance 740 / 740 240 / 240 Weight 46 kg Intake: IV 250 / 250 Heparin/D5W 25,000 U/250 mL 25, 250 / 250 000 unit In 250 ml @ Per Protocol IV.CONT TITRATE PRN Rx #:[id number] Oral 940 / 940 240 / 240 Output: Urine 450 / 450 Other: Date of Last Bowel Movement 01/27/18 01/27/18 01/29/18 Exam: R LE warm w/ slight improvement to motor function Multiphasic R DP/PT heard via Doppler Prevena wound vac to R groin intact R groin soft w/o swelling or hematoma dressings (2) to R LE I/C/D Laboratory Results - last 24 hr 01/29/18 01/29/18 01/29/18 11:56 12:45 17:00 WBC RBC Hgb Hct MCV MCH MCHC RDW Plt Count MPV Neut % (Auto) Lymph % (Auto) [place] % (Auto) Eos % (Auto) Baso % (Auto) Neut # (Auto) Lymph # (Auto) [place] # (Auto) Eos # (Auto) Baso # (Auto) WBC Differential Differential Comment APTT 41.5 H Sodium Potassium Chloride Carbon Dioxide Anion Gap BUN Creatinine Estimated GFR POC Glucose 195 H 201 H Random Glucose Calcium 01/29/18 01/30/18 01/30/18 21:08 03:30 03:30 WBC 9.4 RBC 4.03 L Hgb 12.8 L Hct 37.1 L MCV 92.0 MCH 31.7 MCHC 34.4 RDW 13.3 Plt Count 245 MPV 7.7 Neut % (Auto) 61.2 Lymph % (Auto) 25.3 [place] % (Auto) 10.9 H Eos % (Auto) 1.7 Baso % (Auto) 0.9 Neut # (Auto) 5.8 Lymph # (Auto) 2.4 [place] # (Auto) 1.0 H Eos # (Auto) 0.2 Baso # (Auto) 0.1 WBC Differential . Differential Comment Auto diff final APTT 42.5 H Sodium Potassium Chloride Carbon Dioxide Anion Gap BUN Creatinine Estimated GFR POC Glucose 158 H Random Glucose Calcium 01/30/18 01/30/18 03:30 08:32 WBC RBC Hgb Hct MCV MCH MCHC RDW Plt Count MPV Neut % (Auto) Lymph % (Auto) [place] % (Auto) Eos % (Auto) Baso % (Auto) Neut # (Auto) Lymph # (Auto) [place] # (Auto) Eos # (Auto) Baso # (Auto) WBC Differential Differential Comment APTT Sodium 135 L Potassium 4.1 Chloride 100 Carbon Dioxide 27.4 Anion Gap 8 BUN 16 Creatinine 0.82 Estimated GFR Greater than 89 POC Glucose 239 H Random Glucose 141 H Calcium 7.9 L Assessment and Plan - Plan POD 3 Status post redo femoral posterior tibial bypass Pt doing well pain controlled Plan Continue PT/OOB/ambulation (walker) Continue pain control Malka Ridley NP [facility] [phone] Discharge Plannin-3 days
[2018-01-30] MEDS: Sod Chloride 0.9% Inj 1,000 ML IV.SIG SCH (12:53)
[2018-01-30] MEDS: Heparin Drip 25,000 UNIT/250 ML BAG IV.CONT PRN (19:26)
[2018-01-31 05:29] LABS: Baso % (Auto) 0.8 % (0.0-2.0); Eos # (Auto) 0.2 th/mm3 (0.0-0.4); Eos % (Auto) 3.3 % (0.0-4.0); Hematocrit 33.6 % (39.0-51.0); Hemoglobin 11.7 gm/dL (13.0-17.0); Lymph % (Auto) 31.8 % (9.0-44.0); Mean Corpuscular HGB Conc 34.8 % (32.0-36.0); Mean Corpuscular Hemoglobin 31.9 pg (27.0-34.0); Mean Corpuscular Volume 91.6 fL (80.0-100.0); Mean Platelet Volume 7.4 fL (7.0-11.0); Mono # (Auto) 0.8 th/mm3 (0.0-0.9); Mono % (Auto) 12.7 % (0.0-8.0); Neut # (Auto) 3.3 th/mm3 (1.8-7.7); Neut % (Auto) 51.4 % (16.0-70.0); Platelet Count 257 th/mm3 (150-450); Red Blood Count 3.67 mil/mm3 (4.50-5.90); Red Cell Distribution Width 13.5 % (11.6-17.2); White Blood Count 6.4 th/mm3 (4.0-11.0)
[2018-01-31 05:48] LABS: Anion Gap 10 meq/L (5-15); Carbon Dioxide 26.3 meq/L (21.0-32.0); Chloride 98 meq/L (98-107); Glomerular Filtration Rate Greater Than 89 mL/min (>89); Glucose,Random 151 mg/dL (74-106); Potassium 4.1 meq/L (3.5-5.1); Sodium 134 meq/L (136-145)
[2018-01-31 06:22] LABS: Blood Urea Nitrogen 15 mg/dL (7-18)
[2018-01-31] MEDS: Morphine Sulfate Inj 2 MG/ML Vial IV.PUSH PRN ×4 (08:17→21:52)
[2018-01-31] MEDS: amLODIPine 10 MG Tablet PO SCH (08:17)
[2018-01-31] MEDS: Insulin NovoLOG Aspart Correctional Sugar Inj SQ SCH ×4 (08:18→21:49)
[2018-01-31] MEDS: Sod Chloride 0.9% Inj 1,000 ML IV.SIG SCH (11:37)
[2018-01-31 14:20] LABS: INR 1.3 Ratio; Prothrombin Time 13.4 sec (9.8-11.6)
--- NOTE | 2018-01-31 17:07 | P.PNVS ---
Subjective Subjective/Hospital Course: 67/M S/P Redo right femoral to popliteal artery bypass Doing well tolerating diet, ambulating with physical therapy. Objective Vital Signs / I&O: Vital Signs 01/30/18 18:00 01/30/18 19:00 01/30/18 20:00 Temperature 98.4 F Pulse Rate 88 96 H 94 H Respiratory Rate 18 Blood Pressure 140/91 H Pulse Oximetry 01/30/18 21:00 01/30/18 22:00 01/30/18 23:00 Temperature Pulse Rate 80 77 79 Respiratory Rate Blood Pressure Pulse Oximetry 01/31/18 00:00 01/31/18 01:00 01/31/18 02:00 Temperature 98.2 F Pulse Rate 76 83 72 Respiratory Rate 19 Blood Pressure 146/86 H Pulse Oximetry 01/31/18 03:00 01/31/18 04:00 01/31/18 05:00 Temperature 98.6 F Pulse Rate 69 79 68 Respiratory Rate 18 Blood Pressure 125/71 Pulse Oximetry 01/31/18 06:00 01/31/18 07:00 01/31/18 08:00 Temperature 98.3 F Pulse Rate 66 69 68 Respiratory Rate 16 Blood Pressure 146/76 H Pulse Oximetry 100 01/31/18 09:00 01/31/18 10:00 01/31/18 11:00 Temperature Pulse Rate 65 69 69 Respiratory Rate Blood Pressure Pulse Oximetry 01/31/18 12:00 01/31/18 13:00 01/31/18 14:00 Temperature 98.5 F Pulse Rate 72 64 68 Respiratory Rate 16 Blood Pressure 135/77 Pulse Oximetry 99 01/31/18 15:00 01/31/18 16:00 01/31/18 17:00 Temperature 98.2 F Pulse Rate 73 76 75 Respiratory Rate 16 Blood Pressure 156/90 H Pulse Oximetry 100 Intake & Output 01/30/18 01/31/18 01/31/18 18:59 06:59 18:59 Intake Total 920 / 920 730 / 730 Output Total 460 / 460 500 / 500 Balance 460 / 460 230 / 230 Weight 58.9 kg Intake: IV 250 / 250 Heparin/D5W 25,000 U/250 mL 25, 250 / 250 000 unit In 250 ml @ Per Protocol IV.CONT TITRATE PRN Rx #:[id number] Oral 920 / 920 480 / 480 Output: Urine 460 / 460 500 / 500 Other: Date of Last Bowel Movement 01/29/18 Physical Exam: All incisions are clean dry intact. Right lower extremity with multiphasic posterior tibial signal Laboratory Results - last 24 hr 01/30/18 01/31/18 01/31/18 22:09 04:25 04:25 WBC 6.4 RBC 3.67 L Hgb 11.7 L Hct 33.6 L MCV 91.6 MCH 31.9 MCHC 34.8 RDW 13.5 Plt Count 257 MPV 7.4 Neut % (Auto) 51.4 Lymph % (Auto) 31.8 [place] % (Auto) 12.7 H Eos % (Auto) 3.3 Baso % (Auto) 0.8 Neut # (Auto) 3.3 Lymph # (Auto) 2.0 [place] # (Auto) 0.8 Eos # (Auto) 0.2 Baso # (Auto) 0.0 WBC Differential . Differential Comment Auto diff final PT INR APTT 41.8 H Sodium Potassium Chloride Carbon Dioxide Anion Gap BUN Creatinine Estimated GFR POC Glucose 153 H Random Glucose Calcium 01/31/18 01/31/18 01/31/18 04:25 07:39 11:56 WBC RBC Hgb Hct MCV MCH MCHC RDW Plt Count MPV Neut % (Auto) Lymph % (Auto) [place] % (Auto) Eos % (Auto) Baso % (Auto) Neut # (Auto) Lymph # (Auto) [place] # (Auto) Eos # (Auto) Baso # (Auto) WBC Differential Differential Comment PT INR APTT Sodium 134 L Potassium 4.1 Chloride 98 Carbon Dioxide 26.3 Anion Gap 10 BUN 15 Creatinine 0.75 Estimated GFR Greater than 89 POC Glucose 189 H 203 H Random Glucose 151 H Calcium 8.0 L 01/31/18 01/31/18 13:35 14:50 WBC RBC Hgb Hct MCV MCH MCHC RDW Plt Count MPV Neut % (Auto) Lymph % (Auto) [place] % (Auto) Eos % (Auto) Baso % (Auto) Neut # (Auto) Lymph # (Auto) [place] # (Auto) Eos # (Auto) Baso # (Auto) WBC Differential Differential Comment PT 13.4 H INR 1.3 APTT Sodium Potassium Chloride Carbon Dioxide Anion Gap BUN Creatinine Estimated GFR POC Glucose 250 H Random Glucose Calcium Assessment and Plan - Plan Postop day 4 status post right lower extremity femoral tibial bypass. Coumadin started. INR is 1.3 Plan discharge to rehab in 1-2 days. Discharge Plannin-3 days
[2018-02-01] MEDS: Heparin Drip 25,000 UNIT/250 ML BAG IV.CONT PRN (01:46)
[2018-02-01] MEDS: Morphine Sulfate Inj 2 MG/ML Vial IV.PUSH PRN ×5 (04:35→21:07)
[2018-02-01 06:18] LABS: Baso # (Auto) 0.1 th/mm3 (0.0-0.2); Eos # (Auto) 0.3 th/mm3 (0.0-0.4); Eos % (Auto) 5.6 % (0.0-4.0); Hematocrit 33.3 % (39.0-51.0); Hemoglobin 11.5 gm/dL (13.0-17.0); Lymph # (Auto) 1.9 th/mm3 (1.0-4.8); Lymph % (Auto) 37.2 % (9.0-44.0); Mean Corpuscular HGB Conc 34.5 % (32.0-36.0); Mean Corpuscular Hemoglobin 31.8 pg (27.0-34.0); Mean Corpuscular Volume 92.2 fL (80.0-100.0); Mono # (Auto) 0.6 th/mm3 (0.0-0.9); Mono % (Auto) 11.1 % (0.0-8.0); Neut # (Auto) 2.3 th/mm3 (1.8-7.7); Neut % (Auto) 45.1 % (16.0-70.0); Platelet Count 307 th/mm3 (150-450); Red Blood Count 3.61 mil/mm3 (4.50-5.90); Red Cell Distribution Width 12.9 % (11.6-17.2); White Blood Count 5.2 th/mm3 (4.0-11.0)
[2018-02-01 06:29] LABS: Activated Partial Thrombo Time 42.7 sec (23.4-31.7); INR 1.4 Ratio; Prothrombin Time 14.6 sec (9.8-11.6)
[2018-02-01 06:37] LABS: Anion Gap 8 meq/L (5-15); Blood Urea Nitrogen 11 mg/dL (7-18); Calcium 8.2 mg/dL (8.5-10.1); Carbon Dioxide 29.1 meq/L (21.0-32.0); Chloride 100 meq/L (98-107); Glomerular Filtration Rate Greater Than 89 mL/min (>89); Glucose,Random 116 mg/dL (74-106); Sodium 137 meq/L (136-145)
[2018-02-01] MEDS: Insulin NovoLOG Aspart Correctional Sugar Inj SQ SCH ×4 (07:47→21:08)
[2018-02-01] MEDS: amLODIPine 10 MG Tablet PO SCH (08:28)
--- NOTE | 2018-02-01 09:40 | P.PNVS ---
Subjective Subjective/Hospital Course: 67/M S/P Redo right femoral to PT artery bypass Doing well tolerating diet, ambulating with physical therapy. Objective Vital Signs / I&O: Vital Signs 01/31/18 10:00 01/31/18 11:00 01/31/18 12:00 Temperature 98.5 F Pulse Rate 69 69 72 Respiratory Rate 16 Blood Pressure 135/77 Pulse Oximetry 99 01/31/18 13:00 01/31/18 14:00 01/31/18 15:00 Temperature Pulse Rate 64 68 73 Respiratory Rate Blood Pressure Pulse Oximetry 01/31/18 16:00 01/31/18 17:00 01/31/18 18:00 Temperature 98.2 F Pulse Rate 76 75 78 Respiratory Rate 16 Blood Pressure 156/90 H Pulse Oximetry 100 01/31/18 20:00 01/31/18 21:00 01/31/18 22:00 Temperature 99 F Pulse Rate 77 70 76 Respiratory Rate 18 Blood Pressure 171/92 H Pulse Oximetry 100 01/31/18 23:00 02/01/18 00:00 02/01/18 01:00 Temperature 98.7 F Pulse Rate 80 81 70 Respiratory Rate 18 Blood Pressure 158/81 H Pulse Oximetry 100 02/01/18 02:00 02/01/18 03:00 02/01/18 04:00 Temperature 99.1 F Pulse Rate 66 68 73 Respiratory Rate 18 Blood Pressure 146/83 H Pulse Oximetry 99 02/01/18 05:00 02/01/18 06:00 02/01/18 07:00 Temperature Pulse Rate 86 72 82 Respiratory Rate Blood Pressure Pulse Oximetry 02/01/18 08:00 02/01/18 09:00 Temperature 98.8 F Pulse Rate 78 74 Respiratory Rate 16 Blood Pressure 144/86 H Pulse Oximetry 100 Intake & Output 01/31/18 02/01/18 02/01/18 18:59 06:59 18:59 Intake Total 920 / 920 730 / 730 Output Total 900 / 900 1000 / 1000 Balance -270 / -270 Intake: IV 250 / 250 Heparin/D5W 25,000 U/250 mL 25, 250 / 250 000 unit In 250 ml @ Per Protocol IV.CONT TITRATE PRN Rx #:[id number] Oral 920 / 920 480 / 480 Output: Urine 900 / 900 1000 / 1000 Other: Date of Last Bowel Movement 01/31/18 Physical Exam: Palpable R PT pulse wounds CDI Laboratory Results - last 24 hr 01/31/18 01/31/18 01/31/18 11:56 13:35 14:50 WBC RBC Hgb Hct MCV MCH MCHC RDW Plt Count MPV Neut % (Auto) Lymph % (Auto) [place] % (Auto) Eos % (Auto) Baso % (Auto) Neut # (Auto) Lymph # (Auto) [place] # (Auto) Eos # (Auto) Baso # (Auto) WBC Differential Differential Comment PT 13.4 H INR 1.3 APTT Sodium Potassium Chloride Carbon Dioxide Anion Gap BUN Creatinine Estimated GFR POC Glucose 203 H 250 H Random Glucose Calcium 01/31/18 02/01/18 02/01/18 21:35 04:21 04:21 WBC 5.2 RBC 3.61 L Hgb 11.5 L Hct 33.3 L MCV 92.2 MCH 31.8 MCHC 34.5 RDW 12.9 Plt Count 307 MPV 7.0 Neut % (Auto) 45.1 Lymph % (Auto) 37.2 [place] % (Auto) 11.1 H Eos % (Auto) 5.6 H Baso % (Auto) 1.0 Neut # (Auto) 2.3 Lymph # (Auto) 1.9 [place] # (Auto) 0.6 Eos # (Auto) 0.3 Baso # (Auto) 0.1 WBC Differential . Differential Comment Auto diff final PT INR APTT Sodium 137 Potassium 4.0 Chloride 100 Carbon Dioxide 29.1 Anion Gap 8 BUN 11 Creatinine 0.78 Estimated GFR Greater than 89 POC Glucose 177 H Random Glucose 116 H Calcium 8.2 L 02/01/18 04:21 WBC RBC Hgb Hct MCV MCH MCHC RDW Plt Count MPV Neut % (Auto) Lymph % (Auto) [place] % (Auto) Eos % (Auto) Baso % (Auto) Neut # (Auto) Lymph # (Auto) [place] # (Auto) Eos # (Auto) Baso # (Auto) WBC Differential Differential Comment PT 14.6 H INR 1.4 APTT 42.7 H Sodium Potassium Chloride Carbon Dioxide Anion Gap BUN Creatinine Estimated GFR POC Glucose Random Glucose Calcium Assessment and Plan - Plan Postop day 4 status post right lower extremity femoral tibial bypass. Coumadin started. INR is 1.4 Plan discharge to rehab in 1-2 days. Discharge Plannin-3 days
[2018-02-01] MEDS: Sod Chloride 0.9% Inj 1,000 ML IV.SIG SCH (10:04)
[2018-02-02] MEDS: Morphine Sulfate Inj 2 MG/ML Vial IV.PUSH PRN ×6 (00:30→22:58)
[2018-02-02 04:15] LABS: INR 1.7 Ratio; Prothrombin Time 17.4 sec (9.8-11.6)
[2018-02-02] MEDS: Insulin NovoLOG Aspart Correctional Sugar Inj SQ SCH ×4 (09:11→21:26)
[2018-02-02] MEDS: amLODIPine 10 MG Tablet PO SCH (09:12)
--- NOTE | 2018-02-02 10:51 | P.PNVS ---
Subjective Post Op Day #: 6 Procedure: Redo right femoral to popliteal artery bypass Subjective/Hospital Course: 67/M S/P Redo right femoral to PT artery bypass Pt w/ improved R foot motor function Pt continues to be doing well Pt tolerating diet Pt ambulating w/ PT Pain controlled Objective Vital Signs / I&O: Vital Signs 02/01/18 11:00 02/01/18 12:00 02/01/18 13:00 Temperature 98.6 F Pulse Rate 71 72 69 Respiratory Rate 16 Blood Pressure 147/81 H Pulse Oximetry 100 02/01/18 14:00 02/01/18 15:00 02/01/18 16:00 Temperature 98.5 F Pulse Rate 73 73 76 Respiratory Rate 16 Blood Pressure 161/91 H Pulse Oximetry 100 02/01/18 17:00 02/01/18 18:00 02/01/18 19:00 Temperature Pulse Rate 79 80 73 Respiratory Rate Blood Pressure Pulse Oximetry 02/01/18 20:00 02/01/18 21:00 02/01/18 21:10 Temperature 98.8 F Pulse Rate 76 76 Respiratory Rate 16 16 Blood Pressure 161/81 H Pulse Oximetry 100 02/01/18 21:12 02/01/18 22:00 02/01/18 23:00 Temperature Pulse Rate 74 70 Respiratory Rate 16 Blood Pressure Pulse Oximetry 02/02/18 00:00 02/02/18 00:30 02/02/18 01:00 Temperature 98.7 F Pulse Rate 76 80 Respiratory Rate 16 16 Blood Pressure 155/90 H Pulse Oximetry 100 02/02/18 02:00 02/02/18 03:00 02/02/18 04:00 Temperature 98.6 F Pulse Rate 70 82 80 Respiratory Rate 16 Blood Pressure 167/93 H Pulse Oximetry 100 02/02/18 05:00 02/02/18 06:00 02/02/18 07:00 Temperature Pulse Rate 82 86 73 Respiratory Rate Blood Pressure Pulse Oximetry 02/02/18 07:43 02/02/18 08:00 02/02/18 09:00 Temperature 98.6 F Pulse Rate 80 82 Respiratory Rate 16 20 Blood Pressure 158/94 H Pulse Oximetry 100 02/02/18 10:00 Temperature Pulse Rate 82 Respiratory Rate Blood Pressure Pulse Oximetry Intake & Output 11/07/18 11/08/18 11/08/18 18:59 06:59 18:59 Intake Total 1200 / 1200 680 / 680 Output Total 900 / 900 650 / 650 Balance 300 / 300 30 / 30 Weight 58 kg Intake: Oral 1200 / 1200 680 / 680 Output: Urine 900 / 900 650 / 650 Exam: 67/M speech clear, NAD , GCS 15 Incision to R leg intact with sutures/No R/D/S Prevena wound vac to R groin intact R groin soft w/o swelling or hematoma R LE warm w/ improved motor function R DP 2+ palpable Laboratory Results - last 24 hr 02/01/18 02/01/18 02/01/18 11:17 15:18 20:59 PT INR POC Glucose 167 H 170 H 163 H 02/02/18 02/02/18 03:25 08:33 PT 17.4 H INR 1.7 POC Glucose 199 H Assessment and Plan - Plan 67/M s/p re do R distal bypass (femoral tibial bypass) POD 6 Pt doing well Pain controlled INR - 1.7 Plan Continue PT/OOB/Ambulation Continue pain control Continue neurovascular checks INR ordered for tomorrow am- If therapeutic (2-3) will D/c tomorrow am D/c planning (Rehab) Malka Ridley NP [facility]/[employer] [phone] Discharge Planning: tomorrow am
[2018-02-02] MEDS: Heparin Drip 25,000 UNIT/250 ML BAG IV.CONT PRN (10:56)
[2018-02-03] MEDS: Morphine Sulfate Inj 2 MG/ML Vial IV.PUSH PRN ×3 (04:00→09:29)
[2018-02-03 05:12] LABS: Activated Partial Thrombo Time 44.6 sec (23.4-31.7); INR 1.9 Ratio; Prothrombin Time 19.4 sec (9.8-11.6)
[2018-02-03 06:36] VITALS: O2SAT 100
--- NOTE | 2018-02-03 07:51 | P.PNVS ---
Subjective Post Op Day #: 7 Procedure: Redo right femoral to popliteal artery bypass Subjective/Hospital Course: 67/M S/P Redo right femoral to PT artery bypass Pt w/o complaints Pt w/ improved R foot motor function Pt continues to be doing well Pt tolerating diet Pt ambulating w/ PT Pain controlled Removed Prevena wound vac R groin Objective Vital Signs / I&O: Vital Signs 02/02/18 08:00 02/02/18 09:00 02/02/18 10:00 Temperature 98.6 F Pulse Rate 80 82 82 Respiratory Rate 20 Blood Pressure 158/94 H Pulse Oximetry 100 02/02/18 11:00 02/02/18 12:00 02/02/18 13:00 Temperature 98.5 F Pulse Rate 72 70 80 Respiratory Rate 20 Blood Pressure 158/92 H Pulse Oximetry 100 02/02/18 14:00 02/02/18 15:00 02/02/18 16:00 Temperature 98.5 F Pulse Rate 72 90 82 Respiratory Rate 20 Blood Pressure 150/87 H Pulse Oximetry 100 02/02/18 17:00 02/02/18 18:00 02/02/18 19:00 Temperature Pulse Rate 78 74 74 Respiratory Rate Blood Pressure Pulse Oximetry 02/02/18 20:00 02/02/18 20:47 02/02/18 21:00 Temperature 98.5 F Pulse Rate 86 78 Respiratory Rate 20 16 Blood Pressure 178/98 H Pulse Oximetry 100 02/02/18 21:20 02/02/18 22:00 02/02/18 23:00 Temperature Pulse Rate 72 76 Respiratory Rate 8 L Blood Pressure Pulse Oximetry 02/02/18 23:24 02/03/18 00:00 02/03/18 01:00 Temperature 98.6 F Pulse Rate 90 92 H Respiratory Rate 16 18 Blood Pressure 172/97 H Pulse Oximetry 90 L 02/03/18 02:00 02/03/18 03:00 02/03/18 04:00 Temperature 98.5 F Pulse Rate 74 69 82 Respiratory Rate 18 Blood Pressure 154/92 H Pulse Oximetry 100 02/03/18 05:00 02/03/18 06:00 Temperature Pulse Rate 82 70 Respiratory Rate Blood Pressure Pulse Oximetry Intake & Output 02/02/18 02/03/18 02/03/18 18:59 06:59 18:59 Intake Total 1050 / 1050 840 / 840 Output Total 600 / 600 940 / 940 Balance 450 / 450 -100 / -100 Weight 58 kg Intake: IV 250 / 250 Heparin/D5W 25,000 U/250 mL 25, 250 / 250 000 unit In 250 ml @ Per Protocol IV.CONT TITRATE PRN Rx #:[id number] Oral 800 / 800 840 / 840 Output: Urine 600 / 600 940 / 940 Other: Date of Last Bowel Movement 01/30/18 # Bowel Movements 0 Exam: 67/M speech clear, NAD , GCS 15 Incision to R leg intact with sutures/No R/D/S R groin incision Dry intact with steri strips _ No R/D/S/O Incision to R upper thigh region intact w/ steri strips R groin soft w/o swelling or hematoma R LE warm w/ improved motor function R DP 2+ palpable Laboratory Results - last 24 hr 02/02/18 02/02/18 02/02/18 08:33 09:46 12:03 PT INR APTT 42.0 H POC Glucose 199 H 178 H 02/02/18 02/02/18 02/03/18 16:27 20:54 03:56 PT 19.4 H INR 1.9 APTT 44.6 H POC Glucose 192 H 191 H Assessment and Plan - Plan 67/M s/p re do R distal bypass (femoral tibial bypass) POD 7 Pt doing well Pain controlled INR - 1.9 Plan Pt clear for d/c w/ out pt PT- Rx written Removed Prevena wound vac Leave incisions open to air Arranged out pt f/u in 2W with an DARIN and GS Malka Ridley NP [employer] [phone] Discharge Planning: today
--- NOTE | 2018-02-03 08:02 | P.DS ---
Discharge Summary - Admission Date 01/26/18 12:22 - Admission Diagnosis (1) PVD (peripheral vascular disease) - Discharge Date 02/03/18 - Discharge Diagnosis (1) PVD (peripheral vascular disease) Status: Acute - Summary Brief History from admission: 67/M with a PMH of Bilateral lower extremity critical limb ischemia Presented with R LE (decreased motor function and rest pain several months ago) Procedure: Redo right femoral to popliteal artery bypass Significant Findings: Palpable R DP Improved R LE motor function and ambulation Incisions intact to R LE (3) R groin w/o hematoma or swelling Abnormal Lab Results 02/02/18 02/02/18 02/02/18 08:33 09:46 12:03 PT INR APTT 42.0 H POC Glucose 199 H 178 H 02/02/18 02/02/18 02/03/18 16:27 20:54 03:56 PT 19.4 H INR 1.9 APTT 44.6 H POC Glucose 192 H 191 H Hospital Course: 67/M with a PMH of Bilateral lower extremity critical limb ischemia Presented with R LE (decreased motor function and rest pain several months ago) Pt S/P Redo right femoral to popliteal artery bypass Pt did well post op and is w/ improved pain, R LE motor function and now w/ palpable R distal pulses Pt clear for d/c POD 7 with arranged f/u in 2W for suture removal (R LE) and surveillance DARIN/GS E-Forcse reviewed- Pain medication prescribed for out pt pain management - Discharge Instructions Any questions or concerns: Call [facility] at [facility] [phone] Discharge Plan - Discharge Disposition Patient Disposition: 01 Discharge Home - Discharge Condition Condition: Good - Discharge Order Discharge Orders: Discharge Order (Routine); Ordered 02/03/18 Ordered By: Malka Ridley - Physicians Team Primary Care Provider: Sergo Jarvis Attending Provider: Sergo Leon Other Providers: Mele Shabazz - Rxs /Orders / Referrals /Forms Prescriptions: New hydrocodone-acetaminophen 10-325 mg Tablet 1 tab PO Q6H PRN (Reason: See Label Comments) RF: 0 Continue allopurinol [Zyloprim] 100 mg Tablet 100 mg PO DAILY amlodipine [Norvasc] 10 mg Tablet 10 mg PO DAILY atorvastatin [Lipitor] 40 mg Tablet 40 mg PO DAILY metformin 500 mg Tablet 500 mg PO BID sulfamethoxazole-trimethoprim [Bactrim DS] 800-160 mg Tablet 1 tab PO DAILY warfarin [Coumadin] 5 mg Tablet 5 mg PO DAILY zolpidem [Ambien] 10 mg Tablet 10 mg PO HS Discontinued amlodipine 10 mg Tablet 10 mg PO DAILY hydrocodone-acetaminophen 5-325 mg Tablet 1 tab PO Q6H PRN (Reason: Pain) Referrals: Sergo Jarvis MD, R3 [Primary Care Provider] - See Instructions Sergo Leon MD [Physician] - See Instructions (Follow up in 2W with a surveillance DARIN/GS and for suture removal R LE ) - Discharge Instructions Patient Printed Instructions: Angiogram (DC) - Post Discharge Care Plan Care Plan Goals: Discharge Care Plan Goals After Vascular Surgery Contact: Please call [phone] if you have any problems or have questions regarding your hospitalization. Directions to Meet Your Goals: 1. Diet: * You may resume a regular diet as you were eating at home before your admission. 2. Activity: * Increase your activity level gradually. * Keep surgical extremities elevated when at rest. This will help limit the swelling, bruising and discomfort normally present after surgery. * Walking is a good form of light exercise. Go for a walk at least 3 times per day. * No heavy lifting (lifting over 10 pounds) for at least 4 weeks from surgery. * Check with your surgeon to ensure when you are cleared for heavy lifting and full-intensity exercising. * Your strength will gradually improve. * No driving or operating motorized vehicles while on prescription pain medications. * No swimming until wounds fully healed. * Return to work when cleared by MD/PA/PROGRAM MANAGER [employer]. 3. Bathing: Shower daily. * Gently let soap and water run over your incision and pat dry. Do not scrub the incision/wound. * Don't soak in a bath or submerge your incision in water until your incision is healed and evaluated by your physician at follow-up (usually two weeks). 4. Wound Care: INCISION SITE CARE INSTRUCTIONS: * You may leave your incision open to air. * Keep your incision clean and dry, unless showering. See above. * Moisture near the incision will cause the wound to open. * No lotions, creams, ointments, or powders on incisions until they are well- healed. * If you have glue over the incision(s), allow it to fall off naturally in 1-3 weeks * If present, fiordaliza/sutures will be removed 2-3 weeks after surgery during your follow-up clinic visit. * If present, change dressing/bandage when soaked/soiled as needed. * Observe wound daily, checking for signs and symptoms of infection including: foul odor, drainage from the incision, increased redness, increased pain at incision, or increased swelling. 5. Pain Control: Expect post-operative pain for 1-4 weeks after surgery. Your pain will improve gradually. * You may have been provided with a prescription for pain medication. Please take as directed, and be aware of side effects such as drowsiness, constipation and mild stomach discomfort. Pain pills on an empty stomach can cause nausea , so eat a small amount of food, such as crackers, when taking these pills. * Take [id number] stool softeners (Colace or Senna) with your prescribed pain medication. * Acetaminophen (500mg every 6 hours) or Ibuprofen (400mg every 6 hours) may be used in conjunction with narcotics to relieve pain. DO NOT take more than 4 grams (4000mg) of Tylenol in one day, as this can harm your liver. DO NOT take ibuprofen IF: you have an allergy to non-steroidal anti-inflammatory medications, you are taking Coumadin, you have been told you have kidney problems, or you have a history of gastrointestinal bleeding or ulcers. DO NOT take more than 3.2 grams (3200mg) of ibuprofen in one day. * You may also find relief from using heat packs or pads or ice packs. 6. Bowel Regimen for Constipation: * People who undergo surgery are likely to develop post-operative constipation. Exposure to narcotics and changes in diet, fluid intake, and physical activity are known contributors to constipation. We recommend routine stool softeners and/ or laxatives after surgery for most patients. Start by taking one medication. You can increase as directed to relieve constipation. Stop taking these medications if you develop diarrhea. These medications are available over-the- counter and do not require a prescription: * Colace is a stool softener. We recommend starting at 100mg orally twice per day as needed for soft stools and increase to a maximum of 200mg twice daily as needed. * Senna is a laxative that works by keeping water in the intestine to help stool move along the intestinal tract. Take 1 tablet daily as needed for soft stool and increase to a maximum of 2 tablets twice daily as needed. Take Senna with two full glasses of water each time. * Miralax, Dulcolax and Milk of Magnesia are other kmqg-[id number]-taanoqc laxatives that may be used as needed for post-operative constipation. * Drink 6-8 glasses of water per day. * Consume 15-30g of fiber per day: * Metamucil powder, 1-2 tablespoons 1-2 times/day OR Benefiber powder, 2 tablespoons 4 times/day. * Avoid straining. 7. Follow-Up: Do Not miss your follow-up appointment. Keep up with all your appointments and yearly check ups If you have any of the following symptoms please call [phone] immediately: Excessive swelling of the affected extremity Sudden onset of severe or unusual pain in the affected extremity Pain that gets worse or is not relieved by medication Warmth, redness, or swelling in the skin around the wound Foul drainage from incision Extensive bruising or discoloration Wound that opens up or pulls apart Fever above 101.5F or shaking chills Nausea or vomiting Severe diarrhea or severe constipation Dizziness or fainting Chest pain, shortness of breath, or increased work of breathing Weight gain >10 lbs over 3-4 days Inability to urinate for more than 6 hours Cloudy or foul smelling urine Urge to urinate more often than usual Symptoms to Report to Your Doctor: Temperature 101F or higher Pain uncontrolled by medication Drainage or foul odor from incision Extensive bruising or discoloration Chest pain Shortness of breath Nausea, vomiting or dizziness Call 911: Call 911 right away if you have: Sudden onset of chest pain that is not relieved by medications Shortness of breath
[2018-02-03] MEDS: Insulin NovoLOG Aspart Correctional Sugar Inj SQ SCH (09:25)
[2018-02-03] MEDS: amLODIPine 10 MG Tablet PO SCH (09:28)
[2018-02-03 09:48] VITALS: BP 151/83; RESP 18; TEMP 98.3
[2018-02-03 10:05] VITALS: PULSE 74
--- NOTE | 2018-02-09 10:34 | P.DCO ---
- Diagnosis (1) PVD (peripheral vascular disease) Status: Acute - Physical Therapy Order: Evaluate and treat, Improve ambulation, Strength and gait training - Home Health Nursing Order: Medical education, Signs/symptoms of disease process - Case Management Consult Case Management Consult-Home Health: Yes - Certification I have seen patient Omar Duran JR on 02/09/18. My clinical findings support the need for the requested home health care services because: Pt was cleared for d/c and will benefit from continued Physical Therapy and home health services for optimal post operative healing and strengthening Limited mobility due to disease progression, Medication compliance is questionable, High risk of falls I certify that my clinical findings support that this patient is homebound because: Pt was medically cleared for d/c Post-op weakness, Unsteady gait/balance
== END 2018-02-03 11:21 | disposition home or self-care (01) ==
LOC: HDOC 09:22 → HDIC 09:25 → N06 12:22 → HCPC 01-27 14:15
PROVIDERS: ADMIT Surgery; ATTEND Surgery